=== PATIENT | male | born 2000 | race Caucasian/White ===

== ENCOUNTER 2019-01-21 19:32 | Emergency (ER) | payer OTHER ==
[~2019-01-21] VITALS: Ht 200.7 cm; Wt 84.0 kg
[~2019-01-21 19:32] MED LIST: AMOXICILLIN500 MG OR; AMOXICILLIN500 MG PO; AMOXIL500 MG OR; AUGMENTIN875TAB PO; CEPHALEXIN250 MG/51 OR; DAYTRANA20 MG/9 HR TD; DOXYCYC MONO100 M2 PO; NASONEX50 MCG/AC NAB; NO MEDS; ROBITUSS P7.5 MG/5 M OR; RONDEC-DM OR
[2019-01-21] MEDS ORDERED: CIPROFLOXACN500 MG PO (20:16)
[2019-01-21 20:25] VITALS: BP 128/79
== END 2019-01-21 20:23 | disposition home or self-care (01) | DRG 605 ==
LOC: ED 19:32
DX: S61.552A Open bite of left wrist, initial encounter (principal); L03.114 Cellulitis of left upper limb; W56.41XA Bitten by shark, initial encounter; Y93.11 Activity, swimming

== ENCOUNTER 2020-01-30 00:52 | Emergency (ER) | payer BC, OTHER ==
[~2020-01-30] VITALS: Ht 200.7 cm; Wt 81.8 kg
[~2020-01-30 00:52] MED LIST changes: +CIPROFLOXACN500 MG PO
[2020-01-30] MEDS ORDERED: AMOXICILLIN500 MG PO (01:20)
[2020-01-30] MEDS ORDERED: ULTRAM50 M1 PO (01:20)
[2020-01-30 01:37] VITALS: BP 136/99
== END 2020-01-30 01:42 | disposition home or self-care (01) | DRG 158 ==
LOC: ED 00:52
DX: K04.7 Periapical abscess without sinus (principal); M84.48XA Pathological fracture, other site, initial encounter for fracture

== ENCOUNTER 2021-03-10 15:41 | Emergency (ER) | payer OTHER ==
[~2021-03-10] VITALS: Ht 200.7 cm; Wt 81.6 kg
[~2021-03-10 15:41] MED LIST changes: +ULTRAM50 M1 PO
[2021-03-10 17:45] VITALS: BP 122/75
== END 2021-03-10 17:45 | disposition home or self-care (01) | DRG 103 ==
LOC: ED 15:41
DX: F07.81 Postconcussional syndrome (principal)